=== PATIENT | male | born 1985 | race Caucasian/White ===

== ENCOUNTER 2019-01-18 22:14 | Emergency (ER) | payer SELFPAY ==
[~2019-01-18] VITALS: Ht 180.3 cm; Wt 79.8 kg
[2019-01-18 22:14] VITALS: BP 159/109
--- NOTE | 2019-01-18 22:14 | NUR ---
DEJON ADKINS, PREBOOK. TAKEN TO CHAIR C
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
--- NOTE | 2019-01-18 22:43 | NUR ---
PATIENT EXAMINED BY DR. MEZA. PATIENT MEDICALLY CLEARED AND RELEASED IN CUSTODY IN STABLE CONDITION. ORIGINAL PRE-BOOK FORM GIVEN TO [place] [employer].
== END 2019-01-18 22:43 ==
LOC: MED 22:14
DX: Z04.1 Encounter for examination and observation following transport accident (principal); Z88.1 Allergy status to other antibiotic agents; Z90.49 Acquired absence of other specified parts of digestive tract
CPT/HCPCS: 99283